=== PATIENT | female | born 1955 | race Caucasian/White ===

== ENCOUNTER → 2017-05-11 | Outpatient (CLI) | payer MEDICAID ==
[2015-05-07 12:14] VITALS: BP 143/76
[~2017-05-11] MED LIST: NS 100 ML IV 100 ML IV ONE
[2017-05-11 08:45] LABS: CREATININE 1.04 mg/dL (0.55-1.02)
--- NOTE | 2017-05-11 14:31 | CT ---
CT abdomen pelvis with contrast Indication: Intermittent abdominal pain and diarrhea for 2 months. Comparison: None Technique: CT images of the abdomen and pelvis were obtained after IV contrast administration. Automa tic exposure control was utilized. Findings: Multilevel lumbar spondylosis with mild dextroscoliosis. No acute skeletal abnormality. the lung bases are clear. Previous cholecystectomy. The liver, spleen, stomach, duodenum, pancreas, adrenals, and kidneys are e ssentially unremarkable. There is a simple appearing 4.8 cm left lower pole renal cyst. There is colo yesenia diverticulosis without evidence for acute diverticulitis. No significant bowel thickening or dila tation of the lower GI tract. The uterus and ovaries are noted. The urinary bladder and rectum are un remarkable. No free fluid or adenopathy identified. There is aortoiliac atherosclerosis, without aneu rysm. Impression: No acute inflammatory process within the abdomen or pelvis. Diverticulosis and other findings as above. Reported By:
== END ==
LOC: RAD 08:12
PROVIDERS: ATTEND Nurse Practitioner Family
DX: R10.84 Generalized abdominal pain (principal); R15.9 Full incontinence of feces; R19.7 Diarrhea, unspecified; R19.5 Other fecal abnormalities; R63.4 Abnormal weight loss; K57.30 Diverticulosis of large intestine without perforation or abscess without bleeding
CPT/HCPCS: 36415; 74177; 82565; 84520; A4222

== ENCOUNTER → 2017-06-24 | Outpatient (CLI) | payer MEDICAID ==
[2015-05-07 12:14] VITALS: BP 143/76
[2017-06-24 14:57] LABS: BASOPHILS # (AUTO) 0.1 X10^3/uL (0.0-0.1); BASOPHILS % (AUTO) 0.8 % (0.2-1.0); EOSINOPHILS # (AUTO) 0.2 x10^3/uL (0.0-0.2); EOSINOPHILS % (AUTO) 2.8 % (0.9-2.9); HEMATOCRIT 35.5 % (36.0-47.0); HEMOGLOBIN 11.8 g/dL (12.0-16.0); LYMPHOCYTES # (AUTO) 1.6 X10^3/uL (1.3-2.9); LYMPHOCYTES % (AUTO) 24.6 % (21.0-51.0); MEAN CORPUSCULAR HEMOGLOBIN 30.3 pg (27.0-34.0); MEAN CORPUSCULAR HGB CONC 33.4 g/dL (33.0-35.0); MEAN CORPUSCULAR VOLUME 90.8 fL (80.0-100.0); MEAN PLATELET VOLUME 8.4 fL (7.4-11.0); MONOCYTES # (AUTO) 0.5 x10^3/uL (0.3-0.8); MONOCYTES % (AUTO) 7.2 % (0.0-13.0); NEUTROPHILS # (AUTO) 4.1 x10^3/uL (2.2-4.8); NEUTROPHILS % (AUTO) 64.6 % (42.0-75.0); PLATELET COUNT 295 X10^3/uL (150.0-450.0); RED BLOOD COUNT 3.91 X10^6/uL (3.5-5.4); RED CELL DISTRIBUTION WIDTH 15.8 % (11.6-16.5); WHITE BLOOD COUNT 6.4 X10^3/uL (3.6-10.0)
== END ==
LOC: LAB 14:38
PROVIDERS: ATTEND Colon & Rectal Surgery
DX: Z01.818 Encounter for other preprocedural examination (principal); K62.3 Rectal prolapse
CPT/HCPCS: 36415; 85025

== ENCOUNTER 2024-03-28 11:15 | Inpatient (IN) ==
--- NOTE | 2024-03-28 11:32 | DR.GENAD ---
HPI <Cal Latham Last Filed: 03/28/24 18:36> Time Seen Time Seen by Provider: 03/28/24 11:31 HPI Comment HPI Comment: 68-year-old white female sent to the emergency room for evaluation of profound hyponatremia. Complaint/Symptoms Chief Complaint Doctors Comments: Patient is a 68-year-old homebound female presenting with altered mental status, untreated dementia with recent changes in mentation over the last 2 weeks wherein she has been bedbound, not eating or drinking much or being interactive. She has not complained of pain that is new or different than typical for her. She has been falling a lot, is not on blood thinners. She has not been compliant with medications for the last year. Patient presents with her who reports she has not had any nausea vomiting diarrhea or abdominal pain. Nurses notes reviewed Nurses Notes Review: Yes Source History Provided: Patient and Significant Other Mode of Arrival Mode of Arrival: Stretcher [facility] <Cal Latham - Last Filed: 03/28/24 18:36> PMH Past Medical History: Yes Past Medical History Comment: Alzheimer's Past Surgical History: Yes Social History Does patient currently use any type of tobacco product: No Have you used tobacco products in the last 12 months: Yes Type of Tobacco Use: Cigarettes Do you use any recreational Drugs:: No ROS <Cal Latham Efren Filed: 03/28/24 18:36> Review of Systems Constitutional: No Symptoms Reported Eyes: No Symptoms Reported ENTM: No Symptoms Reported Respiratoy: No Symptoms Reported Cardiovascular: No Symptoms Reported Gastrointestinal/Abdominal: No Symptoms Reported Genitourinary: No Symptoms Reported Neurological: No Symptoms Reported Musculoskeletal: No Symptoms Reported Integumentary: No Symptoms Reported Hematologic/Lymphatic: No Symptoms Reported Endocrine: No Symptoms Reported Psychiatric: No Symptoms Reported All Other Systems: Reviewed and Negative Unable to Obtain Due To: Altered mental status PE <Cal Latham - Last Filed: 03/28/24 18:36> Vital Signs Vitals: Vital Signs Temperature 98.0 F Pulse Rate 78 Pulse Rate 80 Pulse Rate 84 Pulse Rate 79 Pulse Rate 79 Pulse Rate 83 Pulse Rate 89 Respiratory Rate 36 Respiratory Rate 48 Respiratory Rate 38 Respiratory Rate 42 Respiratory Rate 43 Respiratory Rate 34 Respiratory Rate 24 Blood Pressure 130/76 Blood Pressure 138/76 Blood Pressure 126/76 O2 Sat by Pulse Oximetry 100 O2 Sat by Pulse Oximetry 100 O2 Sat by Pulse Oximetry 100 O2 Sat by Pulse Oximetry 100 O2 Sat by Pulse Oximetry 100 O2 Sat by Pulse Oximetry 100 O2 Sat by Pulse Oximetry 100 General General Appearance: Alert, In No Apparent Distress and Cachectic Head Head Exam: Normal Inspection, Atraumatic and Normocephalic Eyes Eye exam: PERRL and EOMI ENT ENT Exam: Normal Oropharynx and Mucous Membranes Moist Neck Neck Exam: Normal Inspection Respiratory Respiratory Exam: Normal Lung Sounds Bilat; negative Accessory Muscle Use or Respiratory Distress Cardiovascular Cardiovascular Exam: Regular Rate, Normal Rhythm and Normal Heart Sounds Abdominal Exam Abdominal Exam: Normal Bowel Sounds and Soft; negative Tenderness Extremities Extremities Exam: negative Edema Neurologic Neurological Exam: Alert and CN II-XII Intact; negative Motor Sensory Deficit Skin Skin Exam: Warm and Dry <Malcolm Antunez - Last Filed: 03/28/24 12:38> Vital Signs Vitals: Vital Signs Temperature 98.0 F Pulse Rate 78 Pulse Rate 80 Pulse Rate 84 Pulse Rate 79 Pulse Rate 79 Pulse Rate 83 Pulse Rate 89 Respiratory Rate 36 Respiratory Rate 48 Respiratory Rate 38 Respiratory Rate 42 Respiratory Rate 43 Respiratory Rate 34 Respiratory Rate 24 Blood Pressure 130/76 Blood Pressure 138/76 Blood Pressure 126/76 O2 Sat by Pulse Oximetry 100 O2 Sat by Pulse Oximetry 100 O2 Sat by Pulse Oximetry 100 O2 Sat by Pulse Oximetry 100 O2 Sat by Pulse Oximetry 100 O2 Sat by Pulse Oximetry 100 O2 Sat by Pulse Oximetry 100 COURSE <Cal Latham - Last Filed: 03/28/24 18:36> Treatment Treatment: 68-year-old female sent in for evaluation after found to have abnormal labs this a.m.. Currently no distress. Patient with Alzheimer's, poor historian, has been getting weaker over the past few weeks. Labs repeated. Patient has marked elevated sodium at 167, elevated chloride 132. White count up a bit at 14.8. Renal function off a bit with a BUN of 55, creatinine 1.92, EGFR 28. Patient with hyper natremia, probably related to volume depletion. Urinalysis obtained via cath specimen, no obvious infection. Chest x-ray rotated film. Radiology questions possible left-sided pneumonia. Patient given IV fluids, given IV Rocephin. Recommend admission for further hydration, discussed with Dr. Villasenor, accepts the admission. ROR <Cal Latham - Last Filed: 03/28/24 18:36> Labs Reviewed 03/28/24 11:38 03/28/24 11:38 Laboratory: WBC 14.8 X10^3/uL (3.6-10.0) H 03/28/24 11:38 RBC 4.12 X10^6/uL (3.5-5.4) 03/28/24 11:38 Hgb 12.3 g/dL (12.0-16.0) 03/28/24 11:38 Hct 39.4 % (36.0-47.0) 03/28/24 11:38 MCV 95.5 fL (80.0-100.0) 03/28/24 11:38 MCH 30.0 pg (27.0-34.0) 03/28/24 11:38 MCHC 31.4 g/dL (33.0-35.0) L 03/28/24 11:38 RDW 14.9 % (11.6-16.5) 03/28/24 11:38 Plt Count 208 X10^3/uL (150.0-450.0) 03/28/24 11:38 MPV 10.7 fL (7.4-11.0) 03/28/24 11:38 Neut % (Auto) 86.1 % (42.0-75.0) H 03/28/24 11:38 Lymph % (Auto) 8.0 % (21.0-51.0) L 03/28/24 11:38 [place] % (Auto) 4.5 % (0.0-13.0) 03/28/24 11:38 Eos % (Auto) 1.1 % (0.9-2.9) 03/28/24 11:38 Baso % (Auto) 0.3 % (0.2-1.0) 03/28/24 11:38 Neut # (Auto) 12.7 x10^3/uL (2.2-4.8) H 03/28/24 11:38 Lymph # (Auto) 1.2 X10^3/uL (1.3-2.9) L 03/28/24 11:38 [place] # (Auto) 0.7 x10^3/uL (0.3-0.8) 03/28/24 11:38 Eos # (Auto) 0.2 x10^3/uL (0.0-0.2) 03/28/24 11:38 Baso # (Auto) 0.0 X10^3/uL (0.0-0.1) 03/28/24 11:38 Absolute Nucleated RBC 0.0 /100WBC 03/28/24 11:38 Sodium 167 mmol/L (136-145) H* 03/28/24 11:38 Corrected Sodium 168 mmol/L (136-145) H 03/28/24 11:38 Potassium 4.0 mmol/L (3.5-5.1) 03/28/24 11:38 Chloride 132 mmol/L (98-107) H* 03/28/24 11:38 Carbon Dioxide 28.6 mmol/L (21-32) 03/28/24 11:38 BUN 55 mg/dL (7-18) H 03/28/24 11:38 Creatinine 1.92 mg/dL (0.55-1.02) H 03/28/24 11:38 Est GFR (MDRD) Af Amer 33 (>60) L 03/28/24 11:38 Est GFR (MDRD) Non-Af 28 (>60) L 03/28/24 11:38 Glucose 146 mg/dL (65-99) H 03/28/24 11:38 Calcium 12.1 mg/dL (8.5-10.1) H 03/28/24 11:38 Corrected Calcium 13.1 mg/dL (8.5-10.1) H 03/28/24 11:38 Magnesium 2.7 mg/dL (2.0-2.9) 03/28/24 11:38 Total Bilirubin 0.40 mg/dL (0.2-1.0) 03/28/24 11:38 AST 44 Units/L (15-37) H 03/28/24 11:38 ALT 69 Units/L (12-78) 03/28/24 11:38 Alkaline Phosphatase 211 Units/L (46-116) H 03/28/24 11:38 Total Protein 7.0 g/dL (6.4-8.2) 03/28/24 11:38 Albumin 2.7 g/dL (3.4-5.0) L 03/28/24 11:38 Globulin 4.3 g/dL (2.5-4.5) 03/28/24 11:38 Albumin/Globulin Ratio 0.6 Ratio (1.1-2.1) L 03/28/24 11:38 Specimen Type Catherized urine 03/28/24 14:01 Urine Color Straw (YELLOW) 03/28/24 14:01 Urine Appearance Clear (CLEAR) 03/28/24 14:01 Urine pH 6.0 (5.0 - 8.0) 03/28/24 14:01 Ur Specific Edelstein 1.025 (1.000-1.030) 03/28/24 14:01 Urine Protein 2+ (NEGATIVE) 03/28/24 14:01 Urine Glucose (UA) Negative (NEGATIVE) 03/28/24 14:01 Urine Ketones Negative (NEGATIVE) 03/28/24 14:01 Urine Blood Negative (NEGATIVE) 03/28/24 14:01 Urine Nitrite Negative (NEGATIVE) 03/28/24 14:01 Urine Bilirubin Negative (NEGATIVE) 03/28/24 14:01 Urine Urobilinogen Normal (NORMAL) 03/28/24 14:01 Ur Leukocyte Esterase 1+ (NEGATIVE) 03/28/24 14:01 Urine RBC None seen /HPF (0-3) 03/28/24 14:01 Urine WBC 3-5 /HPF (0-5) 03/28/24 14:01 Ur Squamous Epith Cells Rare /HPF (NEGATIVE) 03/28/24 14:01 Urine Bacteria Negative /HPF (NEGATIVE) 03/28/24 14:01 Ur Culture Indicated? No/not indicated 03/28/24 14:01 <Malcolm Antunez - Last Filed: 03/28/24 12:38> Labs Reviewed Laboratory: WBC 14.8 X10^3/uL (3.6-10.0) H 03/28/24 11:38 RBC 4.12 X10^6/uL (3.5-5.4) 03/28/24 11:38 Hgb 12.3 g/dL (12.0-16.0) 03/28/24 11:38 Hct 39.4 % (36.0-47.0) 03/28/24 11:38 MCV 95.5 fL (80.0-100.0) 03/28/24 11:38 MCH 30.0 pg (27.0-34.0) 03/28/24 11:38 MCHC 31.4 g/dL (33.0-35.0) L 03/28/24 11:38 RDW 14.9 % (11.6-16.5) 03/28/24 11:38 Plt Count 208 X10^3/uL (150.0-450.0) 03/28/24 11:38 MPV 10.7 fL (7.4-11.0) 03/28/24 11:38 Neut % (Auto) 86.1 % (42.0-75.0) H 03/28/24 11:38 Lymph % (Auto) 8.0 % (21.0-51.0) L 03/28/24 11:38 [place] % (Auto) 4.5 % (0.0-13.0) 03/28/24 11:38 Eos % (Auto) 1.1 % (0.9-2.9) 03/28/24 11:38 Baso % (Auto) 0.3 % (0.2-1.0) 03/28/24 11:38 Neut # (Auto) 12.7 x10^3/uL (2.2-4.8) H 03/28/24 11:38 Lymph # (Auto) 1.2 X10^3/uL (1.3-2.9) L 03/28/24 11:38 [place] # (Auto) 0.7 x10^3/uL (0.3-0.8) 03/28/24 11:38 Eos # (Auto) 0.2 x10^3/uL (0.0-0.2) 03/28/24 11:38 Baso # (Auto) 0.0 X10^3/uL (0.0-0.1) 03/28/24 11:38 Absolute Nucleated RBC 0.0 /100WBC 03/28/24 11:38 Sodium 167 mmol/L (136-145) H* 03/28/24 11:38 Corrected Sodium 168 mmol/L (136-145) H 03/28/24 11:38 Potassium 4.0 mmol/L (3.5-5.1) 03/28/24 11:38 Chloride 132 mmol/L (98-107) H* 03/28/24 11:38 Carbon Dioxide 28.6 mmol/L (21-32) 03/28/24 11:38 BUN 55 mg/dL (7-18) H 03/28/24 11:38 Creatinine 1.92 mg/dL (0.55-1.02) H 03/28/24 11:38 Est GFR (MDRD) Af Amer 33 (>60) L 03/28/24 11:38 Est GFR (MDRD) Non-Af 28 (>60) L 03/28/24 11:38 Glucose 146 mg/dL (65-99) H 03/28/24 11:38 Calcium 12.1 mg/dL (8.5-10.1) H 03/28/24 11:38 Corrected Calcium 13.1 mg/dL (8.5-10.1) H 03/28/24 11:38 Magnesium 2.7 mg/dL (2.0-2.9) 03/28/24 11:38 Total Bilirubin 0.40 mg/dL (0.2-1.0) 03/28/24 11:38 AST 44 Units/L (15-37) H 03/28/24 11:38 ALT 69 Units/L (12-78) 03/28/24 11:38 Alkaline Phosphatase 211 Units/L (46-116) H 03/28/24 11:38 Total Protein 7.0 g/dL (6.4-8.2) 03/28/24 11:38 Albumin 2.7 g/dL (3.4-5.0) L 03/28/24 11:38 Globulin 4.3 g/dL (2.5-4.5) 03/28/24 11:38 Albumin/Globulin Ratio 0.6 Ratio (1.1-2.1) L 03/28/24 11:38 Specimen Type Catherized urine 03/28/24 14:01 Urine Color Straw (YELLOW) 03/28/24 14:01 Urine Appearance Clear (CLEAR) 03/28/24 14:01 Urine pH 6.0 (5.0 - 8.0) 03/28/24 14:01 Ur Specific [place] 1.025 (1.000-1.030) 03/28/24 14:01 Urine Protein 2+ (NEGATIVE) 03/28/24 14:01 Urine Glucose (UA) Negative (NEGATIVE) 03/28/24 14:01 Urine Ketones Negative (NEGATIVE) 03/28/24 14:01 Urine Blood Negative (NEGATIVE) 03/28/24 14:01 Urine Nitrite Negative (NEGATIVE) 03/28/24 14:01 Urine Bilirubin Negative (NEGATIVE) 03/28/24 14:01 Urine Urobilinogen Normal (NORMAL) 03/28/24 14:01 Ur Leukocyte Esterase 1+ (NEGATIVE) 03/28/24 14:01 Urine RBC None seen /HPF (0-3) 03/28/24 14:01 Urine WBC 3-5 /HPF (0-5) 03/28/24 14:01 Ur Squamous Epith Cells Rare /HPF (NEGATIVE) 03/28/24 14:01 Urine Bacteria Negative /HPF (NEGATIVE) 03/28/24 14:01 Ur Culture Indicated? No/not indicated 03/28/24 14:01 Opioid <Cal Latham - Last Filed: 03/28/24 18:36> Opioid Risk Tool Age (Louie box if 16-45): No History of Preadolescent Sexual Abuse: No Total: 0 Total Score Risk Category: Low Risk Copyright: Suhail SHELDON predicting aberrant behaviors <Malcolm Antunez - Last Filed: 03/28/24 12:38> Opioid Risk Tool Total: 0 Total Score Risk Category: Low Risk Discharge Plan Diagnosis Discharge Problem: Acute hypernatremia, Volume depletion, Pneumonia Discharge Plan Patient Disposition: 09 ADMITTED INPATIENT Condition: Stable ADDITIONAL NOTES <Cal Latham - Last Filed: 03/28/24 18:36> Additional Notes Additional Notes: Radiology report of R hip x-rays reports possible fracture of lateral aspect of greater trochanter. Per family, last fall within the past month. Not a surgical fracture. Will obtain better imaging with a non contrast CT scan, and make Dr Villasenor aware.
[2024-03-28] MEDS: NS 500 ML IV 500 ML IV ONE ×2 (11:40→12:48)
[2024-03-28 12:49] LABS: BASOPHILS % (AUTO) 0.3 % (0.2-1.0); EOSINOPHILS # (AUTO) 0.2 x10^3/uL (0.0-0.2); EOSINOPHILS % (AUTO) 1.1 % (0.9-2.9); HEMATOCRIT 39.4 % (36.0-47.0); HEMOGLOBIN 12.3 g/dL (12.0-16.0); LYMPHOCYTES # (AUTO) 1.2 X10^3/uL (1.3-2.9); MEAN CORPUSCULAR HGB CONC 31.4 g/dL (33.0-35.0); MEAN CORPUSCULAR VOLUME 95.5 fL (80.0-100.0); MEAN PLATELET VOLUME 10.7 fL (7.4-11.0); MONOCYTES # (AUTO) 0.7 x10^3/uL (0.3-0.8); MONOCYTES % (AUTO) 4.5 % (0.0-13.0); NEUTROPHILS # (AUTO) 12.7 x10^3/uL (2.2-4.8); NEUTROPHILS % (AUTO) 86.1 % (42.0-75.0); PLATELET COUNT 208 X10^3/uL (150.0-450.0); RED BLOOD COUNT 4.12 X10^6/uL (3.5-5.4); RED CELL DISTRIBUTION WIDTH 14.9 % (11.6-16.5); WHITE BLOOD COUNT 14.8 X10^3/uL (3.6-10.0)
[2024-03-28 12:57] LABS: ALBUMIN 2.7 g/dL (3.4-5.0); CALCIUM 12.1 mg/dL (8.5-10.1); CARBON DIOXIDE 28.6 mmol/L (21-32); COR CA(FOR HYPOALB) 13.1 mg/dL (8.5-10.1); CREATININE 1.92 mg/dL (0.55-1.02)
--- NOTE | 2024-03-28 13:55 | RAD ---
EXAM:CHEST, 1 VIEWHISTORY:ams;COMPARISON:No relevant prior studies were available for comparison at the time of interpretation.TECHNIQUE:CHEST, 1 VIEWFINDINGS:Chest:Lines and tubes: NoneMediastinum: Cardiac and mediastinal shadow is within normal limits for size and contour.Pulmonary vessels: No pulmonary vascular congestion.Lung shipley: Hazy left lung opacityPleura: No effusion. No pneumothorax.Bones and soft tissues: No acute osseous or soft tissue abnormality. Probable exaggerated kyphosis.IMPRESSION:1. Hazy left lung opacity may indicate pneumonia in the proper clinical setting. This may also represent overlying soft tissues given probable exaggerated kyphosis.THIS IS AN ELECTRONICALLY VERIFIED FINAL REPORT03/28/2024 1:52 PM - Electronically signed by Kulwant Foss MD
--- NOTE | 2024-03-28 13:59 | CT ---
EXAM: HEAD (TRAUMA) HISTORY: AMS; COMPARISON: None. TECHNIQUE: Multiple axial images of the head were performed from the skullbase to the vertex using standard depa rtmental protocol. Sagittal and coronal reformatted images were performed. Dose reduction techniques including Automated Exposure Control (AEC) and adjustment of mA and kV were utilized. FINDINGS: No hemorrhage or midline shift. Sun-white matter differentiation maintained. Moderate cerebral atrop hy and chronic small-vessel ischemic change with ventricular dilatation. Visualized sinuses are clear. Calvarium unremarkable. No evidence for mass or mass effect by noncon trast CT. IMPRESSION: No acute intracranial findings with moderate atrophy and chronic small-vessel ischemic change and robert tricular prominence likely in keeping with central atrophy but does appear notable, normal pressure h ydrocephalus not excluded. MRI is more sensitive for acute infarct. THIS IS AN ELECTRONICALLY VERIFIED FINAL REPORT 03/28/2024 1:56 PM - Electronically signed by Edwin Mccall MD
[2024-03-28 14:10] LABS: BILIRUBIN,URINE NEGATIVE (NEGATIVE); BLOOD/HEMOGLOBIN,URINE NEGATIVE (NEGATIVE); GLUCOSE, URINE NEGATIVE (NEGATIVE); KETONES,URINE NEGATIVE (NEGATIVE); LEUKOCYTE ESTERASE ,URINE 1+ (NEGATIVE); NITRITES,URINE NEGATIVE (NEGATIVE); PROTEIN,URINE 2+ (NEGATIVE); UROBILINOGEN,URINE NORMAL (NORMAL)
[2024-03-28] MEDS: ROCEPHIN VIAL 1 GRAM IVP ONE (14:22)
[2024-03-28 14:28] LABS: APPEARANCE,URINE CLEAR (CLEAR); COLOR,URINE STRAW (YELLOW)
[2024-03-28 14:29] LABS: BACTERIA,URINE NEGATIVE /HPF (NEGATIVE); RBC,URINE NONE SEEN /HPF (0-3); SQUAMOUS EPITHELIAL CELL,UR RARE /HPF (NEGATIVE)
[2024-03-28] MEDS ORDERED: CONSULT PHARMACY - POTASSIUM & MAGNESIUM XX SCH (16:30)
[2024-03-28 16:54] VITALS: BMI 13.3
--- NOTE | 2024-03-28 17:00 | RAD ---
EXAMINATION:HIP, RIGHTHISTORY:fall; .COMPARISON STUDY:None.TECHNIQUE:Two views right hipFINDINGS:Subtle radiolucency along the lateral aspect of the greater trochanter of the right hip suspicious for acute traumatic fracture. The hip joint is maintained. Soft tissue swelling.IMPRESSION:Findings suspicious for acute traumatic fracture lateral aspect of the greater trochanter. Recommend further evaluation with a noncontrast CT of the bony pelvis and hips if this is of continued clinical concern.THIS IS AN ELECTRONICALLY VERIFIED FINAL REPORT03/28/2024 4:57 PM - Electronically signed by Marika Gonzalez MD
--- NOTE | 2024-03-28 17:01 | RAD ---
EXAMINATION: HIP, LEFT HISTORY: fall; . COMPARISON STUDY: None. TECHNIQUE: Two views left hip FINDINGS: The osseous structures appear intact. Left hip joint is maintained. Slight soft tissue swelling. IMPRESSION: No acute bony process seen about the left hip. THIS IS AN ELECTRONICALLY VERIFIED FINAL REPORT 03/28/2024 4:57 PM - Electronically signed by Marika Gonzalez MD
[2024-03-28] MEDS: ROCEPHIN VIAL 1 GRAM 1 G in NS 100 ML IV 100 ML IV SCH (17:25)
[2024-03-28] MEDS: D5 1/2 NS 1,000 ML 1,000 ML IV SCH (17:47)
[2024-03-28] MEDS: PULMICORT NEB TX 0.5 MG NEB SCH (21:25)
--- NOTE | 2024-03-28 21:36 | CT ---
EXAM:LOWER EXT W/OHISTORY:R greater trochanter fracture;COMPARISON:03/28/2024 radiographsTECHNIQUE:Multiple CT axial images of the right hip were obtained without administration of IV contrast. Sagittal and coronal reformats were performed and reviewed. Dose reduction techniques including Automated Exposure Control (AEC) and adjustment of mA and kV were utilized.FINDINGS:Bones are osteoporotic/osteopenic with an acute right femur greater trochanter fracture but motion degradation is present. This exaggerates the femoral neck appearance. Does appear to be an isolated fracture of the greater trochanter with displacement up to 13 mm superiorly. No evidence for femoral neck fracture. No evidence for suspicious underlying bone lesion. Visualized intrapelvic components show vascular calcification with moderate stool in the rectum.IMPRESSION:1. Acute right femur greater trochanter fracture with 13 mm displacement. No evidence for femoral neck fracture. Motion degradation on this study, bones are osteoporotic..THIS IS AN ELECTRONICALLY VERIFIED FINAL REPORT03/28/2024 9:32 PM - Electronically signed by Edwin Mccall MD
[2024-03-29] MEDS: XOPENEX 1.25 MG/3 ML NEBULE NEB SCH (00:22)
[2024-03-29 05:27] LABS: BASOPHILS % (AUTO) 0.3 % (0.2-1.0); EOSINOPHILS # (AUTO) 0.2 x10^3/uL (0.0-0.2); EOSINOPHILS % (AUTO) 1.3 % (0.9-2.9); HEMOGLOBIN 12.1 g/dL (12.0-16.0); LYMPHOCYTES % (AUTO) 7.9 % (21.0-51.0); MEAN CORPUSCULAR HEMOGLOBIN 30.3 pg (27.0-34.0); MEAN CORPUSCULAR HGB CONC 31.8 g/dL (33.0-35.0); MEAN CORPUSCULAR VOLUME 95.3 fL (80.0-100.0); MONOCYTES # (AUTO) 0.6 x10^3/uL (0.3-0.8); MONOCYTES % (AUTO) 5.1 % (0.0-13.0); NEUTROPHILS # (AUTO) 10.6 x10^3/uL (2.2-4.8); NEUTROPHILS % (AUTO) 85.4 % (42.0-75.0); PLATELET COUNT 180 X10^3/uL (150.0-450.0); RED BLOOD COUNT 3.99 X10^6/uL (3.5-5.4); RED CELL DISTRIBUTION WIDTH 14.9 % (11.6-16.5); WHITE BLOOD COUNT 12.4 X10^3/uL (3.6-10.0)
[2024-03-29 06:19] LABS: ALBUMIN 2.2 g/dL (3.4-5.0); CARBON DIOXIDE 23.5 mmol/L (21-32); COR CA(FOR HYPOALB) 12.4 mg/dL (8.5-10.1); CREATININE 1.66 mg/dL (0.55-1.02); TOTAL PROTEIN 6.3 g/dL (6.4-8.2)
[2024-03-29 06:23] LABS: POTASSIUM 3.7 mmol/L (3.5-5.1)
[2024-03-29] MEDS ORDERED: CONSULT PHARMACY - POTASSIUM & MAGNESIUM XX SCH (07:00)
[2024-03-29] MEDS: NS 500 ML IV 500 ML IV ONE (07:28)
[2024-03-29] MEDS: LR 1,000 ML IV 1,000 ML IV ONE (12:54)
[2024-03-29] MEDS: LR 1,000 ML IV 1,000 ML IV SCH (12:54)
[2024-03-29] MEDS: MORPHINE SULFATE INJ 2 MG INJ IVP PRN (17:59)
[2024-03-30 06:15] LABS: BASOPHILS % (AUTO) 0.2 % (0.2-1.0); EOSINOPHILS # (AUTO) 0.2 x10^3/uL (0.0-0.2); EOSINOPHILS % (AUTO) 2.3 % (0.9-2.9); HEMATOCRIT 28.4 % (36.0-47.0); HEMOGLOBIN 9.2 g/dL (12.0-16.0); LYMPHOCYTES # (AUTO) 0.8 X10^3/uL (1.3-2.9); MEAN CORPUSCULAR HEMOGLOBIN 30.4 pg (27.0-34.0); MEAN CORPUSCULAR HGB CONC 32.3 g/dL (33.0-35.0); MEAN PLATELET VOLUME 10.7 fL (7.4-11.0); MONOCYTES # (AUTO) 0.5 x10^3/uL (0.3-0.8); NEUTROPHILS # (AUTO) 8.2 x10^3/uL (2.2-4.8); NEUTROPHILS % (AUTO) 84.5 % (42.0-75.0); PLATELET COUNT 135 X10^3/uL (150.0-450.0); RED BLOOD COUNT 3.02 X10^6/uL (3.5-5.4); RED CELL DISTRIBUTION WIDTH 14.5 % (11.6-16.5); WHITE BLOOD COUNT 9.7 X10^3/uL (3.6-10.0)
[2024-03-30 06:22] LABS: ALANINE AMINOTRANSFERASE 56 Units/L (12-78); ALKALINE PHOSPHATASE 170 Units/L (46-116); ASPARTATE AMINO TRANSFERASE 34 Units/L (15-37); BLOOD UREA NITROGEN 27 mg/dL (7-18); CALCIUM 10.6 mg/dL (8.5-10.1); CARBON DIOXIDE 23.6 mmol/L (21-32); COR CA(FOR HYPOALB) 12.2 mg/dL (8.5-10.1); CREATININE 1.29 mg/dL (0.55-1.02); GLUCOSE 83 mg/dL (65-99); POTASSIUM 3.5 mmol/L (3.5-5.1); TOTAL PROTEIN 5.6 g/dL (6.4-8.2); eGFR NON BLACK RACES 44 (>60)
[2024-03-30 06:29] LABS: CHLORIDE 120 mmol/L (98-107); SODIUM 151 mmol/L (136-145)
[2024-03-30] MEDS ORDERED: CONSULT PHARMACY - POTASSIUM & MAGNESIUM XX SCH (08:30)
[2024-03-30] MEDS ORDERED: NS 1/2 1,000 ML IV 1,000 ML IV ONE (08:47)
[2024-03-30] MEDS: NS IV ONE (08:50)
[2024-03-31 06:44] LABS: BASOPHILS % (AUTO) 0.2 % (0.2-1.0); EOSINOPHILS # (AUTO) 0.2 x10^3/uL (0.0-0.2); EOSINOPHILS % (AUTO) 2.4 % (0.9-2.9); HEMOGLOBIN 9.1 g/dL (12.0-16.0); LYMPHOCYTES # (AUTO) 0.7 X10^3/uL (1.3-2.9); MEAN CORPUSCULAR HEMOGLOBIN 31.3 pg (27.0-34.0); MEAN CORPUSCULAR HGB CONC 33.6 g/dL (33.0-35.0); MEAN CORPUSCULAR VOLUME 93.1 fL (80.0-100.0); MEAN PLATELET VOLUME 10.2 fL (7.4-11.0); MONOCYTES # (AUTO) 0.5 x10^3/uL (0.3-0.8); MONOCYTES % (AUTO) 5.4 % (0.0-13.0); NEUTROPHILS # (AUTO) 7.2 x10^3/uL (2.2-4.8); PLATELET COUNT 122 X10^3/uL (150.0-450.0); RED CELL DISTRIBUTION WIDTH 14.3 % (11.6-16.5); WHITE BLOOD COUNT 8.5 X10^3/uL (3.6-10.0)
[2024-03-31 07:02] LABS: ALANINE AMINOTRANSFERASE 42 Units/L (12-78); ALBUMIN 1.9 g/dL (3.4-5.0); ALKALINE PHOSPHATASE 163 Units/L (46-116); ASPARTATE AMINO TRANSFERASE 29 Units/L (15-37); BLOOD UREA NITROGEN 22 mg/dL (7-18); CALCIUM 10.3 mg/dL (8.5-10.1); CARBON DIOXIDE 26.9 mmol/L (21-32); CREATININE 1.22 mg/dL (0.55-1.02); GLUCOSE 84 mg/dL (65-99); POTASSIUM 3.2 mmol/L (3.5-5.1); TOTAL PROTEIN 5.4 g/dL (6.4-8.2); eGFR NON BLACK RACES 47 (>60)
[2024-03-31 07:06] LABS: CHLORIDE 117 mmol/L (98-107); SODIUM 150 mmol/L (136-145)
[2024-03-31] MEDS ORDERED: NS 1/2 1,000 ML IV 1,000 ML IV ONE (10:54)
[2024-03-31] MEDS: NS 1/2 1,000 ML IV 1,000 ML IV ONE (11:01)
[2024-03-31] MEDS: KLOR-CON PO SCH (17:26)
[2024-03-31] MEDS ORDERED: CONSULT PHARMACY - POTASSIUM & MAGNESIUM XX SCH (18:00)
[2024-03-31] MEDS: MAGNESIUM SULFATE 1 GRAM/100 mL PREMIX 1 G/100 ML BAG IV SCH (20:57)
[2024-04-01 06:01] LABS: BASOPHILS % (AUTO) 0.1 % (0.2-1.0); EOSINOPHILS # (AUTO) 0.2 x10^3/uL (0.0-0.2); EOSINOPHILS % (AUTO) 1.9 % (0.9-2.9); HEMATOCRIT 27.6 % (36.0-47.0); HEMOGLOBIN 9.3 g/dL (12.0-16.0); LYMPHOCYTES # (AUTO) 0.6 X10^3/uL (1.3-2.9); LYMPHOCYTES % (AUTO) 6.1 % (21.0-51.0); MEAN CORPUSCULAR HEMOGLOBIN 31.3 pg (27.0-34.0); MEAN CORPUSCULAR HGB CONC 33.8 g/dL (33.0-35.0); MEAN CORPUSCULAR VOLUME 92.6 fL (80.0-100.0); MEAN PLATELET VOLUME 9.5 fL (7.4-11.0); MONOCYTES # (AUTO) 0.5 x10^3/uL (0.3-0.8); MONOCYTES % (AUTO) 5.5 % (0.0-13.0); NEUTROPHILS # (AUTO) 8.1 x10^3/uL (2.2-4.8); NEUTROPHILS % (AUTO) 86.4 % (42.0-75.0); PLATELET COUNT 132 X10^3/uL (150.0-450.0); RED BLOOD COUNT 2.98 X10^6/uL (3.5-5.4); RED CELL DISTRIBUTION WIDTH 14.1 % (11.6-16.5); WHITE BLOOD COUNT 9.4 X10^3/uL (3.6-10.0)
[2024-04-01 06:14] LABS: ALANINE AMINOTRANSFERASE 47 Units/L (12-78); ALKALINE PHOSPHATASE 172 Units/L (46-116); ASPARTATE AMINO TRANSFERASE 33 Units/L (15-37); BLOOD UREA NITROGEN 15 mg/dL (7-18); CALCIUM 10.2 mg/dL (8.5-10.1); CARBON DIOXIDE 27.4 mmol/L (21-32); CHLORIDE 112 mmol/L (98-107); COR CA(FOR HYPOALB) 11.8 mg/dL (8.5-10.1); CREATININE 1.26 mg/dL (0.55-1.02); GLUCOSE 99 mg/dL (65-99); POTASSIUM 3.8 mmol/L (3.5-5.1); SODIUM 144 mmol/L (136-145); TOTAL PROTEIN 5.6 g/dL (6.4-8.2); eGFR NON BLACK RACES 45 (>60)
--- NOTE | 2024-04-01 09:15 | RAD ---
EXAM: CHEST, 1 VIEW HISTORY: pna; COMPARISON: 03/28/2024 FINDINGS: Heart is enlarged. Aortic calcified and tortuous. Hazy right midlung opacity worse than prior. The re are hazy bibasilar opacities and probable small effusions. No visible pneumothorax or acute osseo us finding. IMPRESSION: Worsening pulmonary opacities and probable developing small pleural effusions. Cardiomegaly. THIS IS AN ELECTRONICALLY VERIFIED FINAL REPORT 04/01/2024 9:12 AM - Electronically signed by Jericho Romero MD
--- NOTE | 2024-04-02 05:37 | RAD ---
EXAM:ACUTE ABDOMEN SERI ESHISTORY:hypernatremia pneumonia broken hip dehydration poor po intake;COMPARISON:None.FINDINGS:The trachea is midline. The cardiac silhouette is mildly enlarged. Bibasilar parenchymal opacities with probable small bilateral pleural effusions. The bony thorax is unremarkable.Flat plate and upright evaluation of the abdomen demonstrates a normal bowel gas pattern. There is a moderate amount of fecal material throughout the colon. No pathological soft tissue mass or calcification can be observed. The bony structures are grossly intact.IMPRESSION:1. Mild cardiomegaly. Bibasilar parenchymal opacities with probable small bilateral pleural effusions2. No evidence for acute abdominal pathology identified.THIS IS AN ELECTRONICALLY VERIFIED FINAL REPORT04/02/2024 5:34 AM - Electronically signed by Hussein Martinez MD
[2024-04-02 05:47] LABS: BASOPHILS % (AUTO) 0.1 % (0.2-1.0); EOSINOPHILS # (AUTO) 0.2 x10^3/uL (0.0-0.2); EOSINOPHILS % (AUTO) 1.2 % (0.9-2.9); HEMOGLOBIN 9.5 g/dL (12.0-16.0); LYMPHOCYTES # (AUTO) 0.6 X10^3/uL (1.3-2.9); LYMPHOCYTES % (AUTO) 4.3 % (21.0-51.0); MEAN CORPUSCULAR HEMOGLOBIN 30.3 pg (27.0-34.0); MEAN CORPUSCULAR HGB CONC 32.8 g/dL (33.0-35.0); MEAN CORPUSCULAR VOLUME 92.5 fL (80.0-100.0); MEAN PLATELET VOLUME 10.1 fL (7.4-11.0); MONOCYTES # (AUTO) 0.6 x10^3/uL (0.3-0.8); MONOCYTES % (AUTO) 4.7 % (0.0-13.0); NEUTROPHILS # (AUTO) 11.8 x10^3/uL (2.2-4.8); NEUTROPHILS % (AUTO) 89.7 % (42.0-75.0); PLATELET COUNT 168 X10^3/uL (150.0-450.0); RED BLOOD COUNT 3.14 X10^6/uL (3.5-5.4); RED CELL DISTRIBUTION WIDTH 13.9 % (11.6-16.5); WHITE BLOOD COUNT 13.2 X10^3/uL (3.6-10.0)
[2024-04-02 05:59] LABS: ALANINE AMINOTRANSFERASE 50 Units/L (12-78); ALBUMIN 2.1 g/dL (3.4-5.0); ALKALINE PHOSPHATASE 180 Units/L (46-116); ASPARTATE AMINO TRANSFERASE 33 Units/L (15-37); BLOOD UREA NITROGEN 11 mg/dL (7-18); CALCIUM 10.7 mg/dL (8.5-10.1); CARBON DIOXIDE 29.1 mmol/L (21-32); CHLORIDE 110 mmol/L (98-107); COR CA(FOR HYPOALB) 12.2 mg/dL (8.5-10.1); CREATININE 1.19 mg/dL (0.55-1.02); GLUCOSE 97 mg/dL (65-99); POTASSIUM 3.7 mmol/L (3.5-5.1); SODIUM 143 mmol/L (136-145); TOTAL PROTEIN 6.1 g/dL (6.4-8.2); eGFR NON BLACK RACES 48 (>60)
[2024-04-02] MEDS ORDERED: CONSULT PHARMACY - POTASSIUM & MAGNESIUM XX SCH (07:00)
[2024-04-02] MEDS ORDERED: K-DUR TAB 20 MEQ PO SCH (09:00)
[2024-04-02] MEDS: COLACE CAP 100 MG PO STA (13:11)
[2024-04-02] MEDS: LINZESS PO ONE (13:11)
[2024-04-02 15:02] LABS: BILIRUBIN,URINE NEGATIVE (NEGATIVE); BLOOD/HEMOGLOBIN,URINE NEGATIVE (NEGATIVE); GLUCOSE, URINE NEGATIVE (NEGATIVE); KETONES,URINE NEGATIVE (NEGATIVE); LEUKOCYTE ESTERASE ,URINE NEGATIVE (NEGATIVE); NITRITES,URINE NEGATIVE (NEGATIVE); PROTEIN,URINE NEGATIVE (NEGATIVE); UROBILINOGEN,URINE NORMAL (NORMAL)
[2024-04-02 15:10] LABS: APPEARANCE,URINE CLEAR (CLEAR); COLOR,URINE STRAW (YELLOW)
[2024-04-02 21:39] LABS: BILIRUBIN,URINE NEGATIVE (NEGATIVE); BLOOD/HEMOGLOBIN,URINE 3+ (NEGATIVE); GLUCOSE, URINE NEGATIVE (NEGATIVE); KETONES,URINE NEGATIVE (NEGATIVE); LEUKOCYTE ESTERASE ,URINE NEGATIVE (NEGATIVE); NITRITES,URINE NEGATIVE (NEGATIVE); PROTEIN,URINE NEGATIVE (NEGATIVE); UROBILINOGEN,URINE NORMAL (NORMAL)
[2024-04-02 21:45] LABS: APPEARANCE,URINE CLEAR (CLEAR); COLOR,URINE YELLOW (YELLOW)
[2024-04-02 21:46] LABS: BACTERIA,URINE NEGATIVE /HPF (NEGATIVE); SQUAMOUS EPITHELIAL CELL,UR NEGATIVE /HPF (NEGATIVE)
[2024-04-03 06:34] LABS: BASOPHILS % (AUTO) 0.1 % (0.2-1.0); EOSINOPHILS # (AUTO) 0.2 x10^3/uL (0.0-0.2); EOSINOPHILS % (AUTO) 1.3 % (0.9-2.9); HEMATOCRIT 27.7 % (36.0-47.0); HEMOGLOBIN 9.1 g/dL (12.0-16.0); LYMPHOCYTES # (AUTO) 0.5 X10^3/uL (1.3-2.9); LYMPHOCYTES % (AUTO) 3.6 % (21.0-51.0); MEAN CORPUSCULAR HEMOGLOBIN 30.3 pg (27.0-34.0); MEAN CORPUSCULAR HGB CONC 32.7 g/dL (33.0-35.0); MEAN CORPUSCULAR VOLUME 92.8 fL (80.0-100.0); MEAN PLATELET VOLUME 9.8 fL (7.4-11.0); MONOCYTES # (AUTO) 0.6 x10^3/uL (0.3-0.8); MONOCYTES % (AUTO) 4.6 % (0.0-13.0); NEUTROPHILS # (AUTO) 11.4 x10^3/uL (2.2-4.8); NEUTROPHILS % (AUTO) 90.4 % (42.0-75.0); PLATELET COUNT 190 X10^3/uL (150.0-450.0); RED BLOOD COUNT 2.99 X10^6/uL (3.5-5.4); RED CELL DISTRIBUTION WIDTH 14.1 % (11.6-16.5); WHITE BLOOD COUNT 12.6 X10^3/uL (3.6-10.0)
[2024-04-03 06:41] LABS: ALANINE AMINOTRANSFERASE 46 Units/L (12-78); ALKALINE PHOSPHATASE 180 Units/L (46-116); ASPARTATE AMINO TRANSFERASE 29 Units/L (15-37); BLOOD UREA NITROGEN 12 mg/dL (7-18); CALCIUM 10.8 mg/dL (8.5-10.1); CARBON DIOXIDE 25.5 mmol/L (21-32); CHLORIDE 109 mmol/L (98-107); COR CA(FOR HYPOALB) 12.4 mg/dL (8.5-10.1); CREATININE 1.28 mg/dL (0.55-1.02); GLUCOSE 89 mg/dL (65-99); POTASSIUM 3.5 mmol/L (3.5-5.1); SODIUM 141 mmol/L (136-145); TOTAL PROTEIN 5.9 g/dL (6.4-8.2); eGFR NON BLACK RACES 44 (>60)
[2024-04-03 07:05] LABS: BAND NEUTROPHILS % 2 % (0-10)
[2024-04-03 07:06] LABS: PLATELET MORPHOLOGY COMMENT NORMAL (NORMAL)
[2024-04-03 07:47] VITALS: BP 127/71; RESP 18; TEMP 97.9
[2024-04-03 08:52] VITALS: PULSE 85; O2SAT 93
--- NOTE | 2024-04-04 15:44 | DR.CONSULT ---
CONSULT Consultation for Day of: Date: 03/28/24 Chief Complaint Chief Complaint: Right hip pain Allergies Allergies Allergy/AdvReac Type Severity Reaction Status Date / Time No Known Drug Allergies Allergy Verified 03/28/24 11:50 History of Present Illness History of Present Illness: Gilma is a 68 y/o F who presented to [facility] ER and was admitted for hypernatremia and medical workup. Orthopedics was consulted due to the concern of a Right hip fracture. Per a discussion with the family patient has Alzheimer's dementia at baseline and has limited ambulatory ability. They reported a fall recently with an increase in Right hip pain. An xray taken today suggested a fracture of the greater trochanter; thus, Orthopedics was consulted for further management. Past Surgical History Surgical History: No History Social History Does patient currently use any type of tobacco product: No Have you used tobacco products in the last 12 months: No Type of Tobacco Use: None Alcohol Use: None Drug Use: None Medications Home Medications: No Known Drug Allergies Allergy (Verified 03/28/24 11:50) CONTINUE taking the following medications quetiapine 25 mg tablet 25 mg PO BID 03/28/24 [History] New Prescriptions docusate sodium 100 mg capsule (Colace) 200 mg PO QDAY #60 caps 04/03/24 [Rx] levofloxacin 250 mg tablet 500 mg PO Q24H 7 days #14 tabs 04/03/24 [Rx] Plan (1) Fracture of greater trochanter of right femur: Status: Acute Narrative Support Text: I independently reviewed her Right hip xrays from [facility] which demonstrates a mildly displaced greater trochanter fracture. A CT confirmed this but was negative for any other acute bony deformity. I initially recommended an MRI of the hip to rule out intertrochanteric extension but after an extensive discussion with the family about her current situation and comorbidities will cancel this. She is currently non-ambulatory and total care for all activities per their report. They have decided to proceed with hospice treatment for her current condition. Therefore I recommend NWB to the RLE and pain control only. No further imaging is necessary. No surgical intervention is planned for her. She may follow up with us on an outpatient basis if they wish to follow this injury. Thank you for the consult, please call with any further questions.
== END 2024-04-03 12:40 | disposition hospice, home (50) | DRG 535 ==
LOC: ER 11:15 → MED/SURG 11:15 → OBSVTOIN 15:10 → MED/SURG 16:24
PROVIDERS: ADMIT Obstetrics & Gynecology Obstetrics; ATTEND Obstetrics & Gynecology Obstetrics
DX: R41.82 Altered mental status, unspecified; W18.39XA Other fall on same level, initial encounter; M25.551 Pain in right hip; J44.9 Chronic obstructive pulmonary disease, unspecified; J18.8 Other pneumonia, unspecified organism; E86.0 Dehydration; E87.0 Hyperosmolality and hypernatremia; J90 Pleural effusion, not elsewhere classified; E83.42 Hypomagnesemia; S72.111A Displaced fracture of greater trochanter of right femur, initial encounter for closed fracture